=== PATIENT | female | born 1950 | race African-American/Black ===

== ENCOUNTER → 2016-07-25 | Outpatient (CLI) | payer MEDICARE, OTHER ==
--- NOTE | ~2016-07-25 | MY11 ---
[facility] A Service of [facility] RADIOLOGY TEXT RESULTS PATIENT: MILAGROSAUGUST LOCATION: [facility] : 48 UNIT #: [id number] AGE: [address]: Armani Trveiño MD SEX: F ORDER DR: [id number] [facility] [address] [place], [place] [address] [id number] O MR#: [id number] Acc #: [id number] NAME: MILAGROS AUGUST : 1950 SEX: F STUDY DATE/TIME: 07/25/2016 10:22 UNIT: [facility] ROOM: STUDY DESCRIPTION: MY Mammogram Screening Dig Michael Attending Physician: Armani Treviño M.D. Ordering Physician: Armani Treviño M.D. Primary Care Physician: Armani Treviño M.D. MEDICAL IMAGING REPORT This report is preliminary unless electronic signature is present EXAM Digital screening mammogram, 07/25/2016, [facility]. HISTORY 66-year-old woman positive family history, sister. Annual screen. COMPARISON Mammograms date to 02/06/2008 with most recent 07/21/2015. FINDINGS Digital imaging of each breast was completed utilizing a two-view examination of each breast in craniocaudal and mediolateral-oblique projections. Review and interpretation of digital mammograms include a second review in conjunction with FDA-approved CAD device. There is a normal parenchymal presentation bilaterally consistent with the patient's age. There are no breast masses imaged and no parenchymal asymmetry is visualized. There are no suspicious microcalcifications and I see no focal architectural disturbance. IMPRESSION Negative screening digital mammogram. One-year followup recommended. Patients over the age of 40 are entered into a reminder system with target due date for the next mammogram. A result letter will also be sent to the patient. BIRADS: 1 Negative ADDENDUM Breast parenchyma is predominantly fatty replaced. [facility] A Service of [facility] RADIOLOGY TEXT RESULTS PATIENT: MILAGROS LOCATION: [facility] : 48 UNIT #: [id number] AGE: [address]: Armani Treviño MD SEX: F ORDER DR: Dictated by... Gus Metz M.D. THIS IS AN ELECTRONICALLY VERIFIED REPORT Gus Metz M.D. at 07/25/2016 1:27 PM GRACY/ciara TD: 07/25/2016 12:50 JOB #: [id number] MEDICAL IMAGING REPORT Page 1 of 1 COPY
== END | disposition home or self-care (01) ==
LOC: CWCC 09:50
DX: Z12.31 Encounter for screening mammogram for malignant neoplasm of breast (principal); Z80.3 Family history of malignant neoplasm of breast; R92.8 Other abnormal and inconclusive findings on diagnostic imaging of breast
CPT/HCPCS: G0202